=== PATIENT | male | born 2000 | race Caucasian/White ===

== ENCOUNTER 2024-02-07 06:58 | Emergency (ER) | payer SELFPAY ==
[~2024-02-07] VITALS: Ht 170.2 cm; Wt 93.0 kg
[2024-02-07 07:08] VITALS: BP 128/73; PULSE 84; RESP 18; TEMP 98.2; O2SAT 100
== END 2024-02-07 15:10 | disposition left against medical advice (07) ==
LOC: ER 06:58
DX: M54.2 Cervicalgia (principal); R51.9 Headache, unspecified; V98.8XXA Other specified transport accidents, initial encounter; Y93.89 Activity, other specified; Y92.89 Other specified places as the place of occurrence of the external cause; Y99.8 Other external cause status
CPT/HCPCS: 99284